=== PATIENT | male | born 1960 | race African-American/Black ===

== ENCOUNTER 2020-11-01 19:14 | Inpatient (IN) | payer MEDICARE ==
[2020-11-01] MEDS ORDERED: Acetaminophen 325 MG TAB PO PRN (22:30)
[2020-11-01] MEDS ORDERED: Ondansetron ODT 4 MG TAB SL PRN (22:30)
[2020-11-01] MEDS ORDERED: Ondansetron PF 4 MG/2 ML Vial IVP PRN (22:30)
[2020-11-01] MEDS ORDERED: Lactated Ringer's 1,000 ML IV SCH (23:30)
[2020-11-01] MEDS ORDERED: metroNIDAZOLE 500 MG TAB PO SCH (23:45)
[2020-11-01 23:47] VITALS: BMI 49.9
[2020-11-01] MEDS ORDERED: Pharmacy to Dose -VANCOMYCIN IVPB PRN (23:59)
[2020-11-02] MEDS: Lactated Ringer's 1,000 ML IV SCH ×4 (00:08→21:39)
[2020-11-02] MEDS ORDERED: Cefepime 2 GM in Sodium Chloride 0.9% 100 ML IVPB SCH ×2 (05:00→15:00)
[2020-11-02 05:40] LABS: ALT (SGPT) 11 U/L (8-55); AST (SGOT) 33 U/L (5-34); Albumin 2.4 g/dL (3.4-4.8); Alkaline Phosphatase 66 U/L (40-110); Anion Gap 13 mmol/L (10-20); BUN (Urea Nitrogen) 13 mg/dL (8.4-25.7); Bilirubin, Total 0.4 mg/dL (0.2-1.2); Calc. Creatinine Clearance 180 mL/min (70-130); Calcium 7.8 mg/dL (7.8-10.44); Carbon Dioxide 27 mmol/L (23-31); Chloride 103 mmol/L (98-107); Glucose 100 mg/dL (80-115); Lactic Acid 0.7 mmol/L (0.5-2.2); Potassium 3.5 mmol/L (3.5-5.1); Protein, Total 6.4 g/dL (5.8-8.1); Sodium 139 mmol/L (136-145)
[2020-11-02 05:55] LABS: Band 14 % (5-11); Eosinophils 2 % (0-10); Lymphocytes 14 % (21-51); MDiff Complete? YES; Mean Corpuscular HGB CONC 31.1 g/dL (32.0-36.0); Mean Corpuscular Hemoglobin 30.4 pg (27.0-31.0); Mean Platelet Volume 7.5 fL (7.4-10.4); Monocytes 21 % (0-10); Neutrophil 49 % (42-75); Platelet Count 268 thou/uL (130-400); RBC Distribution Width 15.7 % (11.5-14.5); Red Blood Cell (RBC) Count 2.64 mill/uL (4.70-6.10)
[2020-11-02] MEDS ORDERED: Vancomycin 1.5 GRAM/300 ML BAG 1.5 GM in Premix Bag 1 BAG IVPB SCH (06:00)
[2020-11-02] MEDS: metroNIDAZOLE 500 MG TAB PO SCH ×2 (08:31→15:56)
[2020-11-02] MEDS: Torsemide 20 MG TAB PO SCH (08:31)
[2020-11-02] MEDS: Lisinopril 10 MG TAB PO SCH (08:32)
[2020-11-02] MEDS: Enoxaparin Sodium 40 MG/0.4 ML SYRINGE SC SCH (08:32)
[2020-11-02] MEDS: Potassium Chloride 20 MEQ TAB PO SCH (08:32)
[2020-11-02] MEDS: Allopurinol 300 MG TAB PO SCH (08:32)
[2020-11-02 09:05] LABS: SARS-CoV-2 PCR by NAA DETECTED (NotDetected)
[2020-11-02] MEDS: Cefepime 2 GM in Sodium Chloride 0.9% 100 ML IVPB SCH ×2 (12:17→21:38)
[2020-11-02] MEDS: Ibuprofen 800 MG TAB PO PRN (15:56)
[2020-11-02] MEDS ORDERED: Senokot 8.6 MG TAB PO PRN (20:48)
[2020-11-03] MEDS: Lactated Ringer's 1,000 ML IV SCH ×2 (03:39→05:53)
[2020-11-03] MEDS: Cefepime 2 GM in Sodium Chloride 0.9% 100 ML IVPB SCH ×3 (04:00→20:19)
[2020-11-03] MEDS: Polyethylene Glycol 3350 17 GM Packet PO SCH (05:52)
[2020-11-03 07:04] LABS: ALT (SGPT) 8 U/L (8-55); AST (SGOT) 20 U/L (5-34); Albumin 2.5 g/dL (3.4-4.8); Alkaline Phosphatase 64 U/L (40-110); Anion Gap 11 mmol/L (10-20); BUN (Urea Nitrogen) 13 mg/dL (8.4-25.7); Bilirubin, Total 0.3 mg/dL (0.2-1.2); Calc. Creatinine Clearance 209 mL/min (70-130); Calcium 8.2 mg/dL (7.8-10.44); Carbon Dioxide 30 mmol/L (23-31); Chloride 105 mmol/L (98-107); Glucose 88 mg/dL (80-115); Potassium 3.6 mmol/L (3.5-5.1); Protein, Total 6.5 g/dL (5.8-8.1); Sodium 142 mmol/L (136-145)
[2020-11-03 08:08] LABS: #Eosinphils 0.3 thou/uL (0.0-0.7); #Lymphocytes 1.1 thou/uL (1.20-3.40); #Monocytes 1.2 thou/uL (0.11-0.59); #Neutrophils 5.7 thou/uL (1.40-6.50); %Basophils 0.5 % (0.0-1.0); %Eosinophils 3.7 % (0.0-10.0); %Lymphocytes 13.2 % (21.0-51.0); %Monocytes 14.4 % (0.0-10.0); %Neutrophils 68.2 % (42.0-75.0); Anisocytosis SLIGHT = 6-15 cells (100X) (0-5/hpf); Hemoglobin 8.7 g/dL (14.0-18.0); Hypochromia SLIGHT = 6-15 cells (100X) (0-5/hpf); MDiff Complete? YES; Mean Corpuscular Hemoglobin 29.9 pg (27.0-31.0); Mean Corpuscular Volume 99.5 fL (78.0-98.0); Mean Platelet Volume 7.5 fL (7.4-10.4); Platelet Count 303 thou/uL (130-400); RBC Distribution Width 15.6 % (11.5-14.5); Red Blood Cell (RBC) Count 2.89 mill/uL (4.70-6.10); White Blood Cell (WBC) Count 8.4 thou/uL (4.8-10.8)
[2020-11-03] MEDS: Potassium Chloride 20 MEQ TAB PO SCH (08:28)
[2020-11-03] MEDS: Lisinopril 10 MG TAB PO SCH (08:29)
[2020-11-03] MEDS: Torsemide 20 MG TAB PO SCH (08:29)
[2020-11-03] MEDS: Allopurinol 300 MG TAB PO SCH (08:29)
[2020-11-03] MEDS: Enoxaparin Sodium 40 MG/0.4 ML SYRINGE SC SCH (08:33)
[2020-11-03] MEDS: Ibuprofen 800 MG TAB PO PRN (12:27)
[2020-11-04] MEDS: Cefepime 2 GM in Sodium Chloride 0.9% 100 ML IVPB SCH ×3 (05:48→21:13)
[2020-11-04] MEDS ORDERED: Simethicone Chewable 80 MG TAB PO PRN (09:44)
[2020-11-04] MEDS: Potassium Chloride 20 MEQ TAB PO SCH (10:39)
[2020-11-04] MEDS: Lisinopril 10 MG TAB PO SCH (10:40)
[2020-11-04] MEDS: Torsemide 20 MG TAB PO SCH (10:40)
[2020-11-04] MEDS: Allopurinol 300 MG TAB PO SCH (10:40)
[2020-11-04] MEDS: Enoxaparin Sodium 40 MG/0.4 ML SYRINGE SC SCH (10:40)
[2020-11-04] MEDS: Polyethylene Glycol 3350 17 GM Packet PO SCH (10:41)
[2020-11-04 13:31] LABS: #Eosinphils 0.3 thou/uL (0.0-0.7); #Lymphocytes 1.1 thou/uL (1.20-3.40); #Monocytes 0.8 thou/uL (0.11-0.59); #Neutrophils 4.4 thou/uL (1.40-6.50); %Basophils 0.1 % (0.0-1.0); %Eosinophils 3.9 % (0.0-10.0); %Lymphocytes 17.3 % (21.0-51.0); %Monocytes 12.2 % (0.0-10.0); %Neutrophils 66.5 % (42.0-75.0); Hemoglobin 9.7 g/dL (14.0-18.0); Mean Corpuscular HGB CONC 31.2 g/dL (32.0-36.0); Mean Corpuscular Hemoglobin 31.1 pg (27.0-31.0); Mean Corpuscular Volume 99.5 fL (78.0-98.0); Mean Platelet Volume 7.5 fL (7.4-10.4); Platelet Count 345 thou/uL (130-400); RBC Distribution Width 15.4 % (11.5-14.5); Red Blood Cell (RBC) Count 3.11 mill/uL (4.70-6.10); White Blood Cell (WBC) Count 6.6 thou/uL (4.8-10.8)
[2020-11-04 13:48] LABS: ALT (SGPT) 9 U/L (8-55); AST (SGOT) 24 U/L (5-34); Albumin 2.7 g/dL (3.4-4.8); Alkaline Phosphatase 68 U/L (40-110); Anion Gap 14 mmol/L (10-20); BUN (Urea Nitrogen) 9 mg/dL (8.4-25.7); Bilirubin, Total 0.2 mg/dL (0.2-1.2); Calc. Creatinine Clearance 214 mL/min (70-130); Calcium 8.6 mg/dL (7.8-10.44); Carbon Dioxide 29 mmol/L (23-31); Chloride 104 mmol/L (98-107); Globulin 4.8 g/dL (2.4-3.5); Glucose 101 mg/dL (80-115); Potassium 4.1 mmol/L (3.5-5.1); Protein, Total 7.5 g/dL (5.8-8.1); Sodium 143 mmol/L (136-145)
[2020-11-05] MEDS: Cefepime 2 GM in Sodium Chloride 0.9% 100 ML IVPB SCH ×2 (05:11→13:25)
[2020-11-05 06:34] LABS: Hemoglobin 8.9 g/dL (14.0-18.0); Mean Corpuscular HGB CONC 30.7 g/dL (32.0-36.0); Mean Corpuscular Hemoglobin 30.2 pg (27.0-31.0); Mean Corpuscular Volume 98.5 fL (78.0-98.0); Mean Platelet Volume 7.3 fL (7.4-10.4); Platelet Count 342 thou/uL (130-400); RBC Distribution Width 15.3 % (11.5-14.5); Red Blood Cell (RBC) Count 2.94 mill/uL (4.70-6.10); White Blood Cell (WBC) Count 6.1 thou/uL (4.8-10.8)
[2020-11-05 06:44] LABS: ALT (SGPT) 11 U/L (8-55); AST (SGOT) 25 U/L (5-34); Albumin 2.5 g/dL (3.4-4.8); Alkaline Phosphatase 61 U/L (40-110); Anion Gap 7 mmol/L (10-20); BUN (Urea Nitrogen) 9 mg/dL (8.4-25.7); Bilirubin, Total 0.2 mg/dL (0.2-1.2); Calc. Creatinine Clearance 225 mL/min (70-130); Calcium 8.2 mg/dL (7.8-10.44); Carbon Dioxide 35 mmol/L (23-31); Chloride 103 mmol/L (98-107); Globulin 4.1 g/dL (2.4-3.5); Glucose 93 mg/dL (80-115); Potassium 3.4 mmol/L (3.5-5.1); Protein, Total 6.6 g/dL (5.8-8.1); Sodium 142 mmol/L (136-145)
[2020-11-05] MEDS ORDERED: Polyethylene Glycol 3350 17 GM Packet PO PRN (07:43)
[2020-11-05] MEDS: Lisinopril 10 MG TAB PO SCH (08:33)
[2020-11-05] MEDS: Potassium Chloride 20 MEQ TAB PO SCH (08:33)
[2020-11-05] MEDS: Enoxaparin Sodium 40 MG/0.4 ML SYRINGE SC SCH (08:33)
[2020-11-05] MEDS: Torsemide 20 MG TAB PO SCH (08:33)
[2020-11-05] MEDS: Allopurinol 300 MG TAB PO SCH (08:33)
[2020-11-05 08:53] LABS: Band 3 % (5-11); Eosinophils 2 % (0-10); Hypochromia SLIGHT = 6-15 cells (100X) (0-5/hpf); Lymphocytes 20 % (21-51); MDiff Complete? YES; Monocytes 10 % (0-10); Neutrophil 60 % (42-75); Platelet Morphology Comment Appears Adequate; Polychromasia SLIGHT = 2-3 cells (100X) (0-2/hpf); Reactive Lymphocytes 5 % (0-10)
[2020-11-05] MEDS ORDERED: Potassium Chloride 20 MEQ TAB PO SCH (10:00)
[2020-11-05] MEDS: Ibuprofen 800 MG TAB PO PRN (13:24)
[2020-11-05] MEDS: Ciprofloxacin 500 MG TAB PO SCH (21:27)
[2020-11-05] MEDS: AcetaZOLAMIDE 250 MG TAB PO SCH (21:39)
[2020-11-06] MEDS: Ciprofloxacin 500 MG TAB PO SCH (05:07)
[2020-11-06 07:14] LABS: ALT (SGPT) 13 U/L (8-55); AST (SGOT) 35 U/L (5-34); Albumin 2.6 g/dL (3.4-4.8); Alkaline Phosphatase 65 U/L (40-110); Anion Gap 10 mmol/L (10-20); BUN (Urea Nitrogen) 10 mg/dL (8.4-25.7); Bilirubin, Total 0.3 mg/dL (0.2-1.2); Calc. Creatinine Clearance 225 mL/min (70-130); Calcium 8.4 mg/dL (7.8-10.44); Carbon Dioxide 35 mmol/L (23-31); Chloride 101 mmol/L (98-107); Globulin 4.3 g/dL (2.4-3.5); Glucose 90 mg/dL (80-115); Potassium 3.2 mmol/L (3.5-5.1); Protein, Total 6.9 g/dL (5.8-8.1); Sodium 143 mmol/L (136-145)
[2020-11-06 07:32] LABS: #Eosinphils 0.2 thou/uL (0.0-0.7); #Lymphocytes 1.5 thou/uL (1.20-3.40); %Basophils 0.5 % (0.0-1.0); %Eosinophils 3.3 % (0.0-10.0); %Lymphocytes 22.3 % (21.0-51.0); %Monocytes 14.7 % (0.0-10.0); %Neutrophils 59.3 % (42.0-75.0); Band 4 % (5-11); Eosinophils 1 % (0-10); Hemoglobin 9.3 g/dL (14.0-18.0); Lymphocytes 35 % (21-51); MDiff Complete? YES; Mean Corpuscular HGB CONC 29.2 g/dL (32.0-36.0); Mean Corpuscular Hemoglobin 28.7 pg (27.0-31.0); Mean Corpuscular Volume 98.2 fL (78.0-98.0); Mean Platelet Volume 7.2 fL (7.4-10.4); Monocytes 8 % (0-10); Neutrophil 52 % (42-75); Platelet Count 366 thou/uL (130-400); Platelet Morphology Comment Appears Adequate; Polychromasia SLIGHT = 2-3 cells (100X) (0-2/hpf); RBC Distribution Width 15.4 % (11.5-14.5); Red Blood Cell (RBC) Count 3.22 mill/uL (4.70-6.10); White Blood Cell (WBC) Count 6.7 thou/uL (4.8-10.8)
[2020-11-06] MEDS: Enoxaparin Sodium 40 MG/0.4 ML SYRINGE SC SCH (07:48)
[2020-11-06] MEDS: Allopurinol 300 MG TAB PO SCH (07:48)
[2020-11-06] MEDS: AcetaZOLAMIDE 250 MG TAB PO SCH (07:48)
[2020-11-06] MEDS: Lisinopril 10 MG TAB PO SCH (07:48)
[2020-11-06] MEDS: Torsemide 20 MG TAB PO SCH (07:49)
[2020-11-06] MEDS: Potassium Chloride 20 MEQ TAB PO SCH (07:49)
[2020-11-06] MEDS ORDERED: Potassium Chloride 20 MEQ TAB PO SCH (08:15)
[2020-11-06] MEDS ORDERED: AcetaZOLAMIDE 250 MG TAB PO SCH ×2 (11:15→21:00)
[2020-11-06 12:16] VITALS: BP 152/92; TEMP 98.2
== END 2020-11-06 13:40 | disposition swing bed (61) | DRG 871 ==
LOC: ERS 19:14 → T4-B 21:08
PROVIDERS: ADMIT Emergency Medicine; ATTEND Emergency Medicine
PROC: 8E0ZXY6 Isolation (ICD-10-PCS; principal; 2020-11-01)
DX: A41.51 Sepsis due to Escherichia coli [E. coli] (principal); U07.1 COVID-19; J18.9 Pneumonia, unspecified organism; N39.0 Urinary tract infection, site not specified; I10 Essential (primary) hypertension; K21.9 Gastro-esophageal reflux disease without esophagitis; E66.9 Obesity, unspecified; K81.9 Cholecystitis, unspecified; R53.81 Other malaise; R19.7 Diarrhea, unspecified; Z86.16 Personal history of COVID-19
CPT/HCPCS: 36415; 71045; 76705; 78226; 80053; 83605; 84145; 85025; 87324; 87449; 87635; 94760; A9537; J0692; J1650; J3370; J3490; U0003; U0005

== ENCOUNTER 2023-01-19 06:40 | Day surgery (SDC) | payer MEDICARE ==
[2023-01-15 08:51] VITALS: BMI 49.5
[2023-01-19] MEDS ORDERED: PROPOFOL 200 MG/20 ML VIAL ONE (08:07)
[2023-01-19] MEDS ORDERED: Lidocaine 1% PF 5 ML VIAL ONE (08:07)
== END 2023-01-19 09:46 | disposition home or self-care (01) ==
LOC: SDC 06:40
PROVIDERS: ATTEND Internal Medicine
PROC: 0DJD8ZZ Inspection of Lower Intestinal Tract, Via Natural or Artificial Opening Endoscopic (ICD-10-PCS; principal; 2023-01-19)
DX: Z12.11 Encounter for screening for malignant neoplasm of colon (principal); K64.8 Other hemorrhoids; K64.4 Residual hemorrhoidal skin tags; I10 Essential (primary) hypertension; E66.9 Obesity, unspecified; Z68.42 Body mass index [BMI] 45.0-49.9, adult; M10.9 Gout, unspecified; Z79.899 Other long term (current) drug therapy; Z53.09 Procedure and treatment not carried out because of other contraindication
CPT/HCPCS: J2704